=== PATIENT | female | born 2000 | race Caucasian/White ===

== ENCOUNTER 2021-12-05 09:58 | Emergency (ER) | payer OTHER ==
[2021-12-05] MEDS ORDERED: ZANAFLEX2 MG PO (12:19)
== END 2021-12-05 12:50 | disposition home or self-care (01) ==
LOC: ER1 09:58
DX: S00.83XA Contusion of other part of head, initial encounter (principal); G44.209 Tension-type headache, unspecified, not intractable; V49.40XA Driver injured in collision with unspecified motor vehicles in traffic accident, initial encounter; Y92.410 Unspecified street and highway as the place of occurrence of the external cause
CPT/HCPCS: 70450; 99283